=== PATIENT | male | born 1950 | race Hispanic/Latino ===

== ENCOUNTER 2019-07-01 09:01 | Day surgery (SDC) | payer OTHER ==
--- NOTE | 2019-06-28 17:15 | NUR ---
EKG EKG SHOWS ACUTE TN. PT DENIES ANY CHEST PAIN, SOB. HIS BOOKBINDER APPRENTICE IS DR. MARTINEZ IN [place]. SAW HIM 2 WEEKS AGO. WAS TOLD EVERYTHING OK. CALLED BOLIVAR HANNAH DELANEY RN AND INFORMED OF EKG. STATES TO CALL DR. EID, [employer] WORKER BOOKBINDER APPRENTICE TO INFORM OF EKG. YOEL FLORES FROM ER HERE. INFORMED OF EKG. WILL SHOW DR. EID. DR. EID STATES NOT ACUTE TN. GET OLD EKG TO COMPARE. NO EKG AVAILABLE IN ONE CONTENT. YOEL FLORES SPEAKING TO PT. OFFERED TO BE EVALUATED IN ER HERE. PT STATES HE DOES NOT WANT TO BE SEEN HERE. WILL GO REPORT TO DR. MARTINEZ'S TOMORROW FOR EVALUATION. DR. HENSON MADE AWARE OF PTS EKG. OK TO PROCEED WITH SURGERY WITH PREVIOUS EKG. DR. MOREAU PAGED.
[2019-06-28 17:32] LABS: BASOPHILS % (AUTO) 0.6 % (0.0-5.0); EOSINOPHILS % (AUTO) 4.4 % (0.0-8.0); HEMATOCRIT 31.3 % (42-54); LYMPHOCYTES % (AUTO) 31.4 % (21.0-51.0); MEAN CORPUSCULAR HEMOGLOBIN 30.4 pg (27.0-33.0); MEAN CORPUSCULAR HGB CONC 34.2 g/dL (32.0-36.0); MEAN CORPUSCULAR VOLUME 88.9 fL (79-99); MONOCYTES % (AUTO) 6.7 % (3.0-13.0); NEUTROPHILS % (AUTO) 56.9 % (40.0-77.0); NUCLEATED RED BLOOD CELLS 0.1 % (0.0-0.19); PLATELET COUNT (AUTO) 223 K/uL (130-400); RED BLOOD CELL COUNT(AUTO) 3.53 MIL/uL (4.50-6.20); RED CELL DISTRIBUTION WIDTH 12.7 % (11.0-15.5)
[2019-06-28 17:42] LABS: CREATININE 2.3 mg/dL (0.5-1.5); POTASSIUM 5.2 mmol/L (3.5-5.1)
[2019-06-28 17:44] LABS: INR 0.96 (0.85-1.15); PARTIAL THROMBOPLASTIN TIME 26.7 SEC (26.3-35.5); PROTHROMBIN TIME 10.1 SEC (9.6-11.6)
[2019-06-28 18:04] VITALS: BP 142/77
[2019-06-28 18:08] LABS: APPEARANCE,URINE Clear (CLEAR); BILIRUBIN,URINE Negative (NEGATIVE); COLOR,URINE Yellow (YELLOW); GLUCOSE, URINE (UA) Negative (NEGATIVE); KETONES,URINE Negative (NEGATIVE); LEUKOCYTE ESTERASE ,URINE Negative (NEGATIVE); NITRATE,URINE Positive (NEGATIVE); OCCULT BLOOD,URINE Negative (NEGATIVE); PROTEIN,URINE Negative (NEGATIVE); UROBILINOGEN,URINE 0.2 mg/dL (0.2-1.0)
[2019-06-28 18:27] LABS: BACTERIA,URINE Few /HPF (None Seen); MUCUS,URINE None Seen LPF (None Seen); RBC,URINE 0-1 /HPF (0-1); SQUAMOUS EPITHELIAL CELL,UR 0-2 /HPF (0-2)
--- NOTE | 2019-06-28 18:32 | NUR ---
REFUSAL OF TREATMENT PT SIGNED REFUSAL OF TREATMENT FOR EVALUATION IN ER.
--- NOTE | 2019-06-30 13:36 | NUR ---
ABNORMAL LABS BMP, UA, URINE CULTURE FAXED TO DR. MOREAU'S OFFICE, SPOKE TO YOVANI. PER DR. MOREAU, NO NEW ORDERS, PT ALREADY TAKING ANTIBIOTICS. MAY PROCEED WITH PLANNED PROCEDURE. Addendum: 06/30/19 at 1339 by RUDDY QUILES RN RN ADDENDUM: RE BMP, NO FURTHER ORDERS WELL.
[~2019-07-01] VITALS: Ht 172.7 cm; Wt 69.6 kg
[2019-07-01] VITALS (17 sets, daily range): BP systolic 116–146; BP diastolic 55–81
[2019-07-01] MEDS: CEFTRIAXONE SODIUM 1 GM IVP SCH ×2 (06:00→10:50)
[~2019-07-01 09:01] MED LIST: GENTAMICIN SULFATE IV SCH; LISI1TAB28 PO; SODIUM CHLORIDE 0.9% IV SCH
[2019-07-01] MEDS ORDERED: LACTATED RINGERS 1000ML 1,000 ML IV ONE (10:01)
[2019-07-01] MEDS ORDERED: MIDAZOLAM HCL 1 MG/ML 2ML VIAL ONE (10:17)
[2019-07-01] MEDS ORDERED: LIDOCAINE PF 2% 5ML ABBOJECT ONE (10:17)
[2019-07-01] MEDS ORDERED: ROCURONIUM 10MG/1ML SYR 10 MG/ML ML ONE (10:18)
[2019-07-01] MEDS ORDERED: PROPOFOL 10 MG/ML 20ML VIAL IV ONE (10:18)
[2019-07-01] MEDS ORDERED: FENTANYL CITRATE PF 50 MCG/1 ML 2ML VIAL ONE (10:21)
[2019-07-01] MEDS ORDERED: ONDANSETRON HCL 4 MG/2 ML VIAL ONE (10:21)
[2019-07-01] MEDS ORDERED: FOLI1CAP16 PO (10:48)
[2019-07-01] MEDS ORDERED: LEVO500T2 PO (10:49)
[2019-07-01] MEDS ORDERED: EPHEDRINE SULFATE 50 MG/ML AMPULE ONE (11:45)
[2019-07-01] MEDS ORDERED: NEOSTIGMINE 5MG/5ML SYR IV ONE (12:01)
[2019-07-01] MEDS ORDERED: GLYCOPYRROLATE 1 MG/5 ML SYRINGE ONE (12:01)
--- NOTE | 2019-07-01 14:23 | NUR ---
PT LEFT VIA WHEELCHAIR IN PVT CAR. PT LEFT WITH LEG WILSON BAG AND INSTRUCTION FOR WILSON GIVEN TO AND SON. D/C GIVEN TO . PT. LEFT WITH WILSON LEG BAG INTACT, DRY AND PATENT URINE IS HAS A LITTLE TINGE AND IS PINK. NO COMPLICATION UPON D/C PT. STABLE
== END 2019-07-01 14:25 | disposition home or self-care (01) ==
LOC: DAH 09:01
PROVIDERS: ATTEND Urology
DX: N40.1 Benign prostatic hyperplasia with lower urinary tract symptoms (principal); R33.8 Other retention of urine; N13.8 Other obstructive and reflux uropathy; N13.30 Unspecified hydronephrosis; Z98.890 Other specified postprocedural states; Z79.2 Long term (current) use of antibiotics; Z79.899 Other long term (current) drug therapy; Z82.49 Family history of ischemic heart disease and other diseases of the circulatory system; Z82.3 Family history of stroke
CPT/HCPCS: 36415; 52648; 71045; 80048; 81001; 85025; 85610; 85730; 87088; 93005 ×2; 96365; A4215; A4221; A4222; A4223 ×2; A4354; A4358; A4600; A4663; C1758; J0696; J1580; J2001; J2250; J2405; J2704; J2710; J3010; J3490 ×2; J7030; J7120